=== PATIENT | female | born 1985 | race Caucasian/White ===

== ENCOUNTER 2016-10-02 05:56 | Inpatient (IN) | payer OTHER ==
[~2016-10-02] VITALS: Ht 162.6 cm; Wt 83.0 kg
[2016-10-02 05:51] VITALS: BP 109/65
[2016-10-02] MEDS ORDERED: OXYTOCIN 30U/ 0.9% NaCL 500ML 500 ML IV PRN ×2 (06:10→11:16)
[2016-10-02] MEDS ORDERED: OXYTOCIN 30U/ 0.9% NaCL 500ML 500 ML IV ONE (06:10)
[2016-10-02] MEDS ORDERED: D5%-LACTATED RINGERS 1,000 ML IV SCH (06:10)
[2016-10-02] MEDS: LACTATED RINGERS 1,000 ML IV SCH ×5 (06:25→23:32)
[2016-10-02] MEDS ORDERED: MISOPROSTOL 25 MCG TABLET ONE (06:27)
[2016-10-02] MEDS ORDERED: NEWBORN KIT ONE (06:28)
[2016-10-02] MEDS ORDERED: OXYTOCIN 30U/ 0.9% NaCL 500ML 500 ML ONE (06:28)
[2016-10-02] MEDS ORDERED: ONDANSETRON 2MG/ML, 2ML IVPush PRN (06:30)
[2016-10-02] MEDS ORDERED: FENTANYL PF 100 MCG/2ML IV PRN (06:30)
[2016-10-02] MEDS ORDERED: FENTANYL PF 100 MCG/2ML IVPush PRN (06:30)
[2016-10-02] MEDS ORDERED: MISOPROSTOL 25 MCG TABLET VG PRN (06:30)
[2016-10-02 07:28] LABS: DIFF TOTAL CELLS COUNTED 100 CELL DIFF
[2016-10-02] MEDS ORDERED: PLEASE ENTER ALLERGIES MC SCH ×2 (07:30)
[2016-10-02 07:36] LABS: LARGE PLATELETS 1+
[2016-10-02 07:38] LABS: VERIFY COUNTS? YES
[2016-10-02] MEDS ORDERED: PREN1TAB60 PO (09:25)
[2016-10-02] MEDS ORDERED: MISOPROSTOL 200 MCG TABLET ONE (13:11)
[2016-10-02] MEDS ORDERED: FENTANYL/BUPIV./NS/PF 250 ML EPIDCONT ONE (13:57)
[2016-10-02] MEDS ORDERED: LIDOCAINE/PF 1.5%-EPI 1:200K, 30ML ONE (13:57)
[2016-10-02] MEDS ORDERED: LIDOCAINE 1%, 20ML ONE (14:51)
[2016-10-02] MEDS ORDERED: FENTANYL/BUPIV./NS/PF 250 ML EPIDCONT SCH ×2 (15:32→16:35)
[2016-10-02] MEDS ORDERED: EPHEDRINE 50 MG/ML, 1ML IVPush PRN ×2 (16:00→17:00)
[2016-10-02] MEDS ORDERED: NALOXONE 0.4 MG/ML, 1ML IVPush PRN ×2 (16:00→17:00)
[2016-10-02] MEDS ORDERED: LACTATED RINGERS 1,000 ML IVBOLUS PRN ×2 (16:00→17:00)
[2016-10-02] MEDS ORDERED: LACTATED RINGERS 1,000 ML IV SCH (16:35)
[2016-10-02 18:00] VITALS: BP 132/69
[2016-10-02] MEDS: OXYTOCIN 30U/ 0.9% NaCL 500ML 500 ML IV SCH (18:16)
[2016-10-02] MEDS ORDERED: CALCIUM CARBONATE 500 MG TAB.CHEW PO PRN (18:30)
[2016-10-02] MEDS ORDERED: OXYcodone/APAP 5/325MG TABLET PO PRN (18:30)
[2016-10-02] MEDS ORDERED: ONDANSETRON 2MG/ML, 2ML IV PRN (18:30)
[2016-10-02] MEDS ORDERED: MISOPROSTOL 200 MCG TABLET PR PRN (18:30)
[2016-10-02 18:46] VITALS: BP 112/61
[2016-10-02] MEDS: IBUPROFEN 600 MG TABLET PO PRN ×2 (19:02→23:22)
[2016-10-02] MEDS: OXYcodone/APAP 5/325MG TABLET PO PRN (19:02)
[2016-10-02] MEDS: DOCUSATE 100 MG CAPSULE PO PRN (23:22)
[2016-10-02 23:42] LABS: DIFF TOTAL CELLS COUNTED 100 CELL DIFF
[2016-10-02 23:44] LABS: LARGE PLATELETS 1+; VERIFY COUNTS? YES
[2016-10-03 00:12] VITALS: BP 111/66
[2016-10-03] MEDS: OXYTOCIN 30U/ 0.9% NaCL 500ML 500 ML IV SCH (04:16)
[2016-10-03] MEDS: LACTATED RINGERS 1,000 ML IV SCH (07:32)
[2016-10-03] MEDS: DOCUSATE 100 MG CAPSULE PO PRN (07:37)
[2016-10-03] MEDS: OXYcodone/APAP 5/325MG TABLET PO PRN ×2 (07:37→14:14)
[2016-10-03] MEDS: IBUPROFEN 600 MG TABLET PO PRN ×2 (07:37→14:14)
[2016-10-03 07:46] VITALS: BP 110/68
[2016-10-03] MEDS ORDERED: PRENATAL VIT/IRON/FA 1 EACH TABLET PO SCH (09:00)
[2016-10-03 11:40] VITALS: BP 121/80
[2016-10-03 11:42] VITALS: BP 101/65
[2016-10-03] MEDS ORDERED: OXYC-302 PO (15:00)
[2016-10-03] MEDS ORDERED: IBUP-1222 PO (15:00)
[2016-10-03] MEDS ORDERED: DOCU-30 PO (15:00)
== END 2016-10-03 15:43 | disposition home or self-care (01) | DRG 775 ==
LOC: LDIP 05:56 → 2NW 17:31
PROVIDERS: ADMIT Obstetrics & Gynecology; ATTEND Obstetrics & Gynecology
PROC: 10E0XZZ Delivery of Products of Conception, External Approach (ICD-10-PCS; principal; 2016-10-02)
PROC: 0KQM0ZZ Repair Perineum Muscle, Open Approach (ICD-10-PCS; 2016-10-02)
PROC: 3E0P7GC Introduction of Other Therapeutic Substance into Female Reproductive, Via Natural or Artificial Opening (ICD-10-PCS; 2016-10-02)
PROC: 3E0R3CZ (ICD-10-PCS; 2016-10-02)
PROC: 00HU33Z Insertion of Infusion Device into Spinal Canal, Percutaneous Approach (ICD-10-PCS; 2016-10-02)
DX: O62.3 Precipitate labor (principal); O70.1 Second degree perineal laceration during delivery; Z37.0 Single live birth; Z3A.39 39 weeks gestation of pregnancy; Z87.59 Personal history of other complications of pregnancy, childbirth and the puerperium; Z79.899 Other long term (current) drug therapy
CPT/HCPCS: 36415; 59200; 85025; 86850; 86900; J2590; J3010; J7120